=== PATIENT | male | born 1985 | race Caucasian/White ===

== ENCOUNTER 2024-01-06 14:14 | Outpatient (CLI) | payer OTHER, SELFPAY ==
--- NOTE | ~2024-01-06 | XR_ITS ---
EXAMINATION: XR chest 2V, XR shoulder LT min 2V DATE: 01/06/2024 15:07 INDICATION: Chest pain and left shoulder pain TECHNIQUE: 1. PA and lateral views of the chest were obtained. 2. 4 views of the left shoulder including AP internally rotated, AP externally rotated, Grashey and a xillary views were obtained. COMPARISON: None FINDINGS: Chest: The lungs are clear with no focal airspace opacities, pulmonary edema, pleural effusion or pneumothor ax. The cardiomediastinal silhouette is normal. Visualized bones and soft tissues are unremarkable. Left shoulder: Bone alignment is normal. No fracture. Left glenohumeral and acromioclavicular joint spaces are dwayne l. Soft tissues are unremarkable. IMPRESSION: 1. No acute cardiopulmonary disease. 2. Negative left shoulder radiographs. Reviewed, dictated and finalized at location B. IMPRESSION: 1. No acute cardiopulmonary disease. 2. Negative left shoulder radiographs.
--- NOTE | ~2024-01-06 | XR_ITS ---
EXAM: XR lumbar spine 2-3V DATE: 01/06/2024 15:08 HISTORY: Low back pain . COMPARISON: X-ray chest 01/06/2024. FINDINGS: Thoracolumbar scoliosis. 6 nonrib-bearing lumbar-type vertebral bodies, may represent lumba rization of S1 versus a true 6th lumbar vertebral body, the last fully formed disc will be designated L6-S1 for the purposes of this examination. Pedicles intact. 4 mm anterolisthesis at L5-6. Vertebral body heights preserved. Mild disc space narrowing at mild disc space narrowing at L1-2 and L4-5. Mod erate disc space narrowing at L5-6 and L6-S1. Multilevel moderate mid and lower lumbar facet hypertro phy. No fracture or dislocation. 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 If intervention is pl anned, complete imaging of the spine is recommended to confirm level positions. Lumbar scoliosis. Grade 1 anterolisthesis at L5-6. Multilevel degenerative disc disease, moderate at L5-6 and L6-S1. Multilevel moderate facet arthropathy. Reviewed, dictated and finalized at location K. 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 If intervention is planned, complete imaging of the spine is recommended to co nfirm level positions. Lumbar scoliosis. Grade 1 anterolisthesis at L5-6. Multilevel degenerative disc disease, moderate at L5-6 and L6-S1. Multilevel moderate facet arthropathy.
--- NOTE | ~2024-01-06 | XR_ITS ---
EXAMINATION: XR ankle LT min 3V DATE: 01/06/2024 15:08 INDICATION: Left ankle pain. TECHNIQUE: 4 views of left ankle were obtained. COMPARISON: None. FINDINGS: Bone alignment is normal. No fracture. There is mild osteoarthritis of talonavicular joint. IMPRESSION: 1. Mild talonavicular joint osteoarthritis. Reviewed, dictated and finalized at location A.
== END 2024-01-06 14:15 ==
LOC: MICIMG 14:19
PROVIDERS: PCP Emergency Medicine; Visit Provider Emergency Medicine
DX: R07.9 Chest pain, unspecified (principal); M54.9 Dorsalgia, unspecified; M19.072 Primary osteoarthritis, left ankle and foot
CPT/HCPCS: 71046; 72100; 73030; 73610

== ENCOUNTER 2024-04-16 11:09 | Outpatient (CLI) | payer OTHER, SELFPAY ==
--- NOTE | ~2024-04-16 | XR_ITS ---
XR knee RT min 4V Ordering provider: Rivera Alexander MD History: . R knee pain . Comparison: None. FINDINGS: BONES: No acute fracture or dislocation. JOINT SPACES: Normal. SOFT TISSUES: Normal. IMPRESSION: No acute osseous abnormality right knee. Reviewed, dictated and finalized at location A.
== END 2024-04-16 11:10 ==
LOC: MICIMG 11:11
PROVIDERS: PCP Emergency Medicine; Visit Provider Emergency Medicine
DX: M25.561 Pain in right knee (principal)
CPT/HCPCS: 73564